=== PATIENT | male | born 1960 | race American Indian/Alaskan Native ===

== ENCOUNTER 2016-10-27 10:28 | Outpatient (CLI) | payer MEDICARE ==
--- NOTE | 2016-10-27 13:27 | XRay Report ---
Single view abdomen: Findings: Stool in colon. No bowel distention or wall thickening. Faint radiopaque densities in the epigastrium may be related to pancreatitis. Postop changes the right and left hip. Impression: Probable chronic pancreatitis changes.
== END 2016-10-27 10:29 | disposition home or self-care (01) ==
LOC: XRAY 10:28
PROVIDERS: ATTEND Internal Medicine Hematology & Oncology
DX: K30 Functional dyspepsia (principal)
CPT/HCPCS: 74000

== ENCOUNTER 2017-04-14 07:29 | Outpatient (CLI) | payer MEDICARE ==
--- NOTE | 2017-04-14 10:52 | Cat Scan Report ---
CT ABDOMEN PELVIS WITHOUT CONTRAST: HISTORY: Enlarged prostate gland, elevated PSA levels. COMPARISON: none. TECHNIQUE: Helical CT in 1.25mm intervals without IV contrast. Sagittal and coronal reconstructions. FINDINGS: Lung bases: Mild cardiomegaly. Minor scarring in the lower lobes.. Liver: normal. Biliary system: cholecystectomy. No biliary dilatation. Pancreas: the pancreas is atrophic with diffuse calcifications consistent with chronic pancreatitis. No acute inflammatory changes are appreciated. Spleen: normal. Kidneys/ureters/bladder: normal. Adrenal glands: normal. Aorta: normal. Intestines: no evidence for bowel obstruction or focal inflammation. Normal appendix. There are a few diverticula in the descending colon.. Appendix: normal. Pelvic viscera: the prostate gland appears normal size measuring 4.6 cm in diameter.. Musculoskeletal: osteopenia. No blastic bony lesions are appreciated. Healing right lateral ninth and 10th rib fractures are noted which are most likely traumatic. Extensive degenerative changes of both hips with dislocation of the left hip and ostial lysis of the left femoral head.. IMPRESSION: No evidence for metastatic disease. No acute inflammatory process.
== END 2017-04-14 07:30 | disposition home or self-care (01) ==
LOC: CT 07:29
PROVIDERS: ATTEND Internal Medicine Hematology & Oncology
DX: R97.20 Elevated prostate specific antigen [PSA] (principal); I51.7 Cardiomegaly; J98.4 Other disorders of lung; K86.89 Other specified diseases of pancreas; K57.30 Diverticulosis of large intestine without perforation or abscess without bleeding; M85.88 Other specified disorders of bone density and structure, other site; M16.0 Bilateral primary osteoarthritis of hip; S22.41XD Multiple fractures of ribs, right side, subsequent encounter for fracture with routine healing; Z90.49 Acquired absence of other specified parts of digestive tract; X58.XXXD Exposure to other specified factors, subsequent encounter
CPT/HCPCS: 36415; 74176; 82565; 84520

== ENCOUNTER 2017-08-11 11:18 | Outpatient (CLI) | payer MEDICARE ==
--- NOTE | 2017-08-11 15:24 | Ultrasound Report ---
ULTRASOUND RENAL BILATERAL HISTORY: Chronic kidney disease, stage III. TECHNIQUE: transabdominal ultrasound with color Doppler interrogation. COMPARISON: 10/16/15. FINDINGS: The right kidney measures 9.5 x 5.0 x 5.9cm. Right renal cortex: 1.6cm. The left kidney measures 9.5 x 4.4 x 6.0cm. Left renal cortex: 1.1cm. The kidneys are normal size, contour and position. There is increased renal parenchymal echotexture bilaterally. Corticomedullary differentiation is preserved. There is diffuse scattered tiny renal cysts in both kidneys. No evidence of mass, nephrolithiasis, hydronephrosis or perinephric fluid. The views of the bladder and the region of the ureters appear normal. IMPRESSION: Echogenic kidneys consistent with nonspecific renal parenchymal disease. Scattered renal cysts. No obstructive uropathy.
== END 2017-08-11 11:19 | disposition home or self-care (01) ==
LOC: US 11:18
PROVIDERS: ATTEND Internal Medicine Nephrology
DX: I12.9 Hypertensive chronic kidney disease with stage 1 through stage 4 chronic kidney disease, or unspecified chronic kidney disease (principal); N18.3 Chronic kidney disease, stage 3 (moderate); N28.1 Cyst of kidney, acquired
CPT/HCPCS: 76770